=== PATIENT | male | born 1970 | race Caucasian/White ===

== ENCOUNTER 2017-01-16 14:12 | Emergency (ER) | payer OTHER ==
[2017-01-16 14:20] VITALS: BP 142/97; PULSE 67; RESP 16; TEMP 97.7; O2SAT 97
--- NOTE | 2017-01-16 15:10 | UCPHY ---
H & P Time Seen by Provider: 01/16/17 14:58 Patient Type: Established HPI/ROS: CHIEF COMPLAINT: Bilateral foot pain. HISTORY OF PRESENT ILLNESS: The patient is a 46-year-old male with a history of gout who presents with bilateral foot pain for 3 weeks. Over the last 4 days the pain has been worse and has caused him difficulty walking. He reports that his episodes of pain usually last a couple of days and then subside but this episode has lasted 5 days. He denies edema, shortness of breath, calf pain, or other complaints. His grandmother had gout but he otherwise has no family history. He has had episodic foot pain but not both time the same time before. There has been consideration discussion with that he might have gout however there has been no actual uric acid testing to my knowledge. He thinks it might have been some blood test about 10 years ago but of uncertain significance. He certainly never been tested for rheumatologic problems REVIEW OF SYSTEMS: Constitutional - no fevers or chills Musculoskeletal - no joint or muscle pain. Integument - no rashes or wounds Neurological - no numbness, tingling, or paresthesias. Past Medical/Surgical History: Gout, left elbow surgery. Social History: Nonsmoker. Smoking Status: Never smoked Physical Exam: General Appearance: Alert, no distress. Afebrile. Extremities: There is a dull thickness to the top of both feet. He does have rather high arches. However there is no soft tissue swelling or edema or particular focal tenderness. With respect to the ankles which is where most of his pain is there is no effusion. Drawer sign is negative. No bony tenderness. No lymphangitis. On the sole of the foot there is some tenia pedis present at the webspace between toes numbers 4 and 5 little more so on the left. However there is no stigmata of cellulitis to suggest the process. Neurological: NV intact. Skin: Skin is intact. Warm and dry, no rashes. no lymphangitis. . Constitutional: Initial Vital Signs Temperature (C) 36.5 C 01/16/17 14:15 Heart Rate 67 01/16/17 14:15 Respiratory Rate 16 01/16/17 14:15 Blood Pressure 142/97 H 01/16/17 14:15 O2 Sat (%) 97 01/16/17 14:15 O2 Delivery Mode Room Air Allergies/Adverse Reactions: No Known Allergies Allergy (Verified 01/16/17 14:18) Home Medications: Medication Instructions Recorded Indomethacin [Indocin 25 mg (*)] 50 mg PO TID #30 cap 01/16/17 Medical Decision Making ED Course/Re-evaluation: We had discussion. He has been on Indocin before as I reviewed the records from July. However he did not have any stigmata of gout at that time. Certainly in this would work irrespective of the underlying pathology. Does not meet criteria for colchicine or uric acid manipulation. He does require a follow-up visit for consideration of arthritic differential. Went overlying the process discussing the warnings and risks of Indocin verses ibuprofen Differential Diagnosis: The differential diagnosis includes but is not limited to: Fracture, Sprain, Strain, Dislocation, Nerve injury Departure - Departure Disposition: Home, Routine, Self-Care Clinical Impression: Bilateral foot pain Condition: Good Instructions: Gout (ED), Arthralgia (ED) Additional Instructions: Try 800mg Ibuprofen 3 times daily for pain and swelling. Do not take this medication for long periods of time. After 3 days if you choose to switch to the Indocin, stop the ibuprofen. Follow up with a primary care provider next week for reevaluation. You have been given the telephone number of the on-call outpatient doctor. Return for any serious worsening of condition. Referrals: Esvin Starr MD [Medical Doctor] - As per Instructions Prescriptions: Indomethacin [Indocin 25 mg (*)] 50 mg PO TID #30 cap - PQRS PQRS Measurement: Not Applicable Report Scribed for: Ryan Toney Report Scribed by: Florencio Thomas Date of Report: 01/16/17 Time of Report: 15:05 Physician Review and Approval Statement: 01/16/17 15:06 Portions of this note were transcribed by a medical pathology teacher. I personally performed a history, physical exam, medical decision making, and confirmed accuracy of information the transcribed note.
== END 2017-01-16 15:45 | disposition home or self-care (01) ==
LOC: CED 14:12
DX: M79.671 Pain in right foot (principal); M79.672 Pain in left foot; M10.9 Gout, unspecified
CPT/HCPCS: G0463-PO